=== PATIENT | male | born 1970 | race Caucasian/White ===

== ENCOUNTER 2021-10-31 06:00 | Outpatient (RCR) | payer MEDICARE, MEDICAID, SELFPAY | END 2021-11-06 23:59 | disposition home or self-care (01) | LOC: SPT 06:00 | PROVIDERS: Family Provider Family Medicine; PCP Family Medicine; Visit Provider Neurological Surgery | DX: M54.16 Radiculopathy, lumbar region (principal) | CPT/HCPCS: 97162 ==

== ENCOUNTER → 2022-03-11 11:28 | Outpatient (BNVA) | payer MEDICARE, MEDICAID, SELFPAY | PROVIDERS: Family Provider Family Medicine; PCP Family Medicine; Visit Provider Family Medicine | DX: R30.0 Dysuria (principal) | CPT/HCPCS: 81000 ==

== ENCOUNTER 2023-07-14 14:35 | Emergency (ER) | payer MEDICARE, MEDICAID, SELFPAY ==
[2023-07-14 14:47] VITALS: BP 117/77; PULSE 73; RESP 18; TEMP 36.4; O2SAT 96; BMI 27.3
--- NOTE | 2023-07-14 15:00 | XR_ITS ---
WS: [id number] Portable AP upright chest, 07/14/2023 Clinical Data: cp Comparison: Portable chest, 01/17/2015 Findings: No nodules, masses or effusions are seen. The heart is normal. The pulmonary vascularity is not increased. No pneumonia or pneumothorax is seen. The diaphragms are flattened. The patient is hdz d an anterior and posterior cervical fusion. Impression: Hyperinflation.
--- NOTE | 2023-07-14 15:00 | CT_ITS ---
WS: [id number] CT HEAD NONCONTRAST HISTORY: right side weakness TECHNIQUE: Contiguous axial imaging performed through the brain in 3.0 mm imaging. Bone and soft tiss ue windows. Sagittal and coronal reformats reviewed. All CT scans at [facility] use at least one of these dose optimization techniques: automated exposure control; mA and/or kV adjustment per pa tient size (includes targeted exams where dose is matched to clinical indication); or iterative recon struction. DLP: 1141.38 mGy.cm COMPARISON: 05/15/2015 No acute intracranial hemorrhage, midline shift or mass effect. Very mild atrophy and small vessel ischemic disease. Ventricles: Normal size with no hydrocephalus. Moderate bilateral cerebellar atrophy has been previously described. Mild progression since 2015. Paranasal sinuses: As visualized are clear. Mastoid air cells: Well pneumatized. Calvarium and scalp: Skull is intact with no soft tissue edema or swelling. IMPRESSION: 1. No acute intracranial hemorrhage or edema. 2. Very mild cerebral atrophy and small vessel ischemic disease. No infarct. 3. Chronic moderate bilateral cerebellar atrophy.
--- NOTE | 2023-07-14 15:00 | ECG_ITS ---
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 Measurements Intervals [place] Rate: 65 P: 57 [place]: 176 QRS: 30 QRSD: 97 T: 37 QT: 376 QTc: 391 Interpretive Statements SINUS RHYTHM Compared to ECG 01/17/2015 01:30:45 No significant changes Electronically Signed On 07-14-2023 15:28:40 PRINTING ROLLER POLISHER by Samir Bailey M.D. [id number]
--- NOTE | 2023-07-14 15:10 | ED_ITS ---
HPI - Weakness 2 General: Chief complaint: Weakness Stated complaint: Low bp, Body aches Time Seen by Provider: 07/14/23 14:55 Source: patient Mode of arrival: ambulatory Limitations: no limitations History of Present Illness: 53-year-old male has a history of chroni c pain states he is seen at the pain clinic takes oxycodone chronically for his pain. He states that his pain is worsened when asked where it is he states all over he states his whole body hurts not really able to tell me specifics. He states that he has had some right-sided weakness but he states its been going on for 6 to 7 months. He denies any fevers she denies any vomiting. Associated symptoms: Denies chest pain, chills, fever(s), headache(s), nausea or vomiting Review of Systems 2 Const: Reports: body aches; Denies: fever(s), chills or change in appetite Eyes: Denies: blurry vision or eye discomfort ENMT: Denies: throat pain or dental pain Card: Denies: chest pain Resp: Denies: dyspnea GI: Denies: abdominal pain, nausea, vomiting or diarrhea Musc: Reports: neck pain, back pain and extremity pain Skin/Breast: Denies: rash Neuro: Reports: weakness in extremities; Denies: headache(s) PFSH ED 2 PFSH: Medical History Chronic constipation Strain of other muscles, fascia and tendons at shoulder and upper arm level, right arm, initial encounter Acute strain of neck muscle Neuropathy Seizure disorder Intervertebral disc disorder with radiculopathy of lumbar region Surgical History H/O hemorrhoidectomy Hx of fusion of cervical spine (~02/28/09) Hx of fusion of cervical spine (~03/30/09) Family History Mother CAD (coronary artery disease) Father CAD (coronary artery disease) Social History Smoking and tobacco/nicotine status: former use of tobacco/nicotine Alcohol intake: former Substance/Drug Use: never Lives independently: Yes Marital status: Single Current occupational status: disabled Physical Exam 2 Const: COMMON NORMALS: no acute distress, patient oriented x3 and healthy appearing HENMT: COMMON NORMALS: normocephalic and atraumatic HEAD & SCALP: n ormocephalic and atraumatic Eye: COMMON NORMALS: Equal, round and reactive pupils present and EOMs intact bilaterally PUPIL: Yes Equal, round and reactive pupils present Neck/C-Spine: COMMON NORMALS: full ROM and supple Chest: COMMONS NORMALS: normal inspection of the chest and normal palpation of entire chest wall Resp: COMMON NORMALS: normal respiratory effort, No retractions, No use of accessory muscles and clear to auscultation bilaterally AUSCULTATION: clear to auscultation bilaterally Cardio: COMMON NORMALS: regular rate, regular rhythm and No murmurs present (Cardio) RATE: regular rate RHYTHM: regular rhythm GI: COMMON NORMALS: Normal to inspection, nondistended, normoactive bowel sounds present, Soft to palpation, non-tender and no masses PALPATION: Yes Soft to palpation Extremity: COMMON NORMALS: normal to inspection and full ROM Neuro: COMMON NORMALS: patient oriented x3 and moves all extremities OTHER: Right arm and leg weakness has been ongoing for months per patient he is able to lift arm and leg but is weaker than the right side he is able to ambulate. Psych: COMMON NORMALS: mental status grossly normal, Normal thought process present and cooperative THOUGHT PROCESS: Normal thought process present Skin: COMMON NORMALS: no rashes or lesions noted and no wounds GENERAL SKIN EXAM: no rashes or lesions noted Course 2 Vital Signs: Vital signs: Vital Signs Temperature 97.6 F 07/14/23 14:47 Pulse Rate 68 07/14/23 16:15 Respiratory Rate 10 L 07/14/23 16:15 Blood Pressure 131/81 07/14/23 16:15 Pulse Oximetry 93 07/14/23 16:15 Oxygen Delivery Me thod Room Air 07/14/23 14:47 MDM - Weakness Medical Decision Making Patient presents here with pain all over mainly his neck he does have chronic neck pain his lab work here is normal EKG is normal no signs of acute coronary syndrome chest x-ray here is normal he has had some right-sided weakness that is also been going on for months CT head shows no signs of stroke he is able to ambulate he just does have some weakness on that side it is not acute. 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 Medical Records I reviewed the patient's medical records. Lab Data I reviewed the patient's lab results. 07/14/23 15:26 07/14/23 15:26 Laboratory Results WBC 6.21 10^3/uL (3.29-11.43) 07/14/23 15:26 RBC 5.46 10^6/uL (3.85-5.65) 07/14/23 15:26 Hgb 16.80 g/dL (11.27-16.99) 07/14/23 15:26 Hct 50.8 % (37-53) 07/14/23 15: MCV 93.0 fl (82-101) 07/14/23 15:26 MCH 30.8 pg (27-33) 07/14/23 15: MCHC 33.1 g/dL (30-55) 07/14/23 15:26 RDW 12.7 % (12.1-15.1) 07/14/23 15: Plt Count 200 10^3/cmm (157-399) 07/14/23 15: MPV 9.2 fL (7.4-10.4) 07/14/23 15:26 Neut % (Auto) 46.8 % 07/14/23 15:26 Lymph % (Auto) 39.6 % 07/14/23 15:26 [place] % (Auto) 9.3 % 07/14/23 15:26 Eos % (Auto) 3.1 % 07/14/23 15:26 Baso % (Auto) 1.0 % 07/14/23 15:26 Neut # (Auto) 2.91 10^3/uL (1.8-7.7) 07/14/23 15:26 Lymph # (Auto) 2.5 10^3/uL (0.8-4.8) 07/14/23 15:26 [place] # (Auto) 0.6 10^3/uL (0.2-0.9) 07/14/23 15:26 Eos # (Auto) 0.2 10^3/uL (0.0-0.8) 07/14/23 15:26 Baso # (Auto) 0.1 10^3/uL (0.0-0.1) 07/14/23 15:26 Nucleated RBC % (auto) 0 % 07/14/23 15:26 Nucleated RBCs # 0.0 /100WBC 07/14/23 15:26 Sodium 138 mmol/L (136-145) 07/14/23 15:26 Potassium 4.6 mmol/L (3.5-5.1) 07/14/23 15:26 Chloride 104 mmol/L (98-107) 07/14/23 15:26 Carbon Dioxide 22 mmol/L (22-29) 07/14/23 15:26 Anion Gap 16.6 (5-19) 07/14/23 15:26 BUN 17 mg/dL (6-20) 07/14/23 15:26 Creatinine 0.9 mg/dL (0.7-1.2) 07/14/23 15:26 GFR Calculation 88.6 mL/min (90-130) L 07/14/23 15:26 Glucose 75 mg/dL (65-115) 07/14/23 15:26 Calculated Osmolality 286 mOsm/kg (285-295) 07/14/23 15:26 Calcium 9.7 mg/dL (8.5-10.5) 07/14/23 15:26 Total Bilirubin 0.2 mg/dL (0.15-1.2) 07/14/23 15:26 AST 26 U/L (0-40) 07/14/23 15:26 ALT 19 U/L (0-41) 07/14/23 15:26 Alkaline Phosphatase 112 U/L (40-130) 07/14/23 15:26 Total Protein 7.8 g/dL (6.6-8.7) 07/14/23 15:26 Albumin 4.2 g/dL (3.5-5.2) 07/14/23 15:26 Globulin 3.6 g/dL (1.3-4.6) 07/14/23 15:26 TSH 1.01 uIU/mL (0.27-4.20) 07/14/23 15:26 All radiology interpretation(s) finalized by discharge EKG Data EKG 1: I personally reviewed and interpreted this EKG as follows: EKG interpretation date: 07/14/23 EKG interpretation time: 15:04 Interpretation: nsr hr [address] or t wave abnormalities qrs 97 qtc 387 Discharge Plan Discharge Patient Disposition: Home Clinical Impression: Chronic pain Qualifiers: Chronic pain type: other chronic pain Qualified Code(s): G89.29 - Other chronic pain Condition: Stable Prescriptions: New ondansetron 4 mg tablet,disintegrating 4 mg PO Q6H PRN (Reason: nausea and vomiting) Qty: 14 0RF Naprosyn 500 mg tablet 500 mg PO BID PRN (Reason: pain) Qty: 20 0RF No Action Vimpat 50 mg tablet 100 mg PO .at HS phenytoin sodium extended [Dilantin Extended] 100 mg capsule 100 mg PO .HS vit c blend PO oxycodone-acetaminophen [Percocet] 5-325 mg tablet 1 tab PO Q8H meloxicam 15 mg tablet 15 mg PO DAILY medical marijuana PO baclofen 20 mg tablet 20 mg PO TID Qty: 30 0RF valacyclovir 1 gram tablet 1,000 mg PO Q8H 7 Days Qty: 21 0RF triamcinolone acetonide 0.1 % ointment 1 applic topical TID 7 Days Qty: 60 0RF pantoprazole 20 mg tablet,delayed release (DR/EC) See Rx Instructions .ROUTE .COMPLEX Qty: 90 3RF Dose Instruction: TAKE 1 TABLET BY MOUTH DAILY Rx Instructions: TAKE 1 TABLET BY MOUTH DAILY Discharge Orders: Discharge ED (Routine); Ordered 07/14/23 Ordered By: Radha Alarcon Referrals: Raul Gill DO [Primary Care Provider] - 1-3 days Discharge Diet: Advance as tolerated Discharge Activity: Resume usual activity Patient Instructions: Chronic Pain (ED) Coding Level of Care Code ED Database Administration Associate for Radha Wright
[2023-07-14 15:36] LABS: Basophils # 0.1 10^3/uL (0.0-0.1); Eosinophils # 0.2 10^3/uL (0.0-0.8); Eosinophils % 3.1 %; Hematocrit 50.8 % (37-53); Lymphocytes # 2.5 10^3/uL (0.8-4.8); Lymphocytes % 39.6 %; Mean Corpuscular HGB Conc 33.1 g/dL (30-55); Mean Corpuscular Hemoglobin 30.8 pg (27-33); Mean Platelet Volume 9.2 fL (7.4-10.4); Monocytes # 0.6 10^3/uL (0.2-0.9); Monocytes % 9.3 %; Neutrophils # 2.91 10^3/uL (1.8-7.7); Neutrophils % 46.8 %; Nucleated Red Blood Cells % 0 %; Platelet Count 200 10^3/cmm (157-399); Red Blood Count 5.46 10^6/uL (3.85-5.65); Red Cell Distribution Width 12.7 % (12.1-15.1); White Blood Count 6.21 10^3/uL (3.29-11.43)
[2023-07-14] MEDS: ondansetron 2 mg/ML SDV 2 mL 4 MG IVP (15:43)
[2023-07-14 15:45] VITALS: RESP 18
[2023-07-14] MEDS: morphine 4 mg/mL SDV 1 mL IVP (15:45)
[2023-07-14 16:15] VITALS: BP 131/81; PULSE 68; RESP 10; O2SAT 93
[2023-07-14 16:15] LABS: Alanine Aminotransferase 19 U/L (0-41); Albumin Level 4.2 g/dL (3.5-5.2); Alkaline Phosphatase 112 U/L (40-130); Blood Urea Nitrogen 17 mg/dL (6-20); Calcium 9.7 mg/dL (8.5-10.5); Carbon Dioxide 22 mmol/L (22-29); Chloride 104 mmol/L (98-107); Globulin 3.6 g/dL (1.3-4.6); Glomerular Filtration Rate 88.6 mL/min (90-130); Glucose 75 mg/dL (65-115); Osmolality Calculated 286 mOsm/kg (285-295); Sodium 138 mmol/L (136-145); Thyroid Stimulating Hormone 1.01 uIU/mL (0.27-4.20); Total Bilirubin 0.2 mg/dL (0.15-1.2); Total Protein 7.8 g/dL (6.6-8.7)
[2023-07-14 16:17] LABS: Anion Gap 16.6 (5-19); Aspartate Amino Transferase 26 U/L (0-40); Potassium 4.6 mmol/L (3.5-5.1)
[2023-07-14 16:51] VITALS: BP 122/83; PULSE 67; O2SAT 94
== END 2023-07-14 16:52 | disposition home or self-care (01) ==
PROVIDERS: Emergency Provider Emergency Medicine; PCP Family Medicine
DX: G89.29 Other chronic pain (principal); M54.2 Cervicalgia; Z87.891 Personal history of nicotine dependence
CPT/HCPCS: 36415; 70450; 71045; 80053; 84443; 85025; 93005; 96374; 96375; 99285; J2270; J2405

== ENCOUNTER 2023-08-28 20:48 | Emergency (ER) | payer MEDICARE, MEDICAID, SELFPAY ==
--- NOTE | 2023-08-28 20:49 | ECG_ITS ---
[facility] Test Date: 2023-08-28 Pat Name: Dylan Clark Department: Room: Gender: Male Transplanter Orchid: : 1970 Requested By: Radha Alarcon Order Number: [id number] Michela MD: Dereck Mujica M.D. Measurements Intervals [place] Rate: 95 P: 66 [place]: 212 QRS: 79 QRSD: 92 T: 33 QT: 365 QTc: 460 Interpretive Statements SINUS RHYTHM WITH FIRST DEGREE AV BLOCK MODERATE T-WAVE ABNORMALITY, CONSIDER ANTERIOR ISCHEMIA [-0.1+ mV T-WAVE IN V3/V4] Compared to ECG 07/14/2023 15:04:57 First degree AV block now present T-wave abnormality now present Possible ischemia now present Electronically Signed On 08-29-2023 8:32:08 BARRELHEAD INSPECTOR by Dereck Mujica M.D. [id number]
--- NOTE | 2023-08-28 20:49 | XRR_ITS ---
PROCEDURE INFORMATION: Exam: XR Chest Exam date and time: 08/28/2023 9:10 PM Age: 53 years old Clinical indication: Chest pressure; Prior surgery; Surgery date: 6+ months; Surgery type: Cervical fusion; Patient HX: C/O chest pain; Additional info: Cp TECHNIQUE: Imaging protocol: Radiologic exam of the chest. Views: 1 view. COMPARISON: CR XR chest 1V portable [id number] 07/14/2023 4:06 PM FINDINGS: Lungs: No consolidation. Pleural spaces: No large pleural effusion. No pneumothorax. Heart/Mediastinum: Unremarkable. No cardiomegaly. Bones/joints: Partially imaged cervical spine hardware. No acute osseous abnormality. XR/XR chest 1V portable [id number] IMPRESSION: No acute findings.
[2023-08-28 20:50] VITALS: BP 164/96; PULSE 104; RESP 19; TEMP 36.7; O2SAT 94; BMI 27.3
--- NOTE | 2023-08-28 20:59 | W.ED.CHESTPA ---
HPI - Chest Pain General: Chief Complaint: Chest Pain Stated Complaint: CP Time Seen by Provider: 08/28/23 20:48 Source: patient Mode of arrival: ambulatory Limitations: no limitations History of Present Illness: 53-year-old male states that he is having chest pain tonight's been intermittent and sharp in nature and center of his chest he is also had some shortness of breath. He denies any fever patient denies any cough he had no vomiting or diarrhea. Denies any worsening improving factors. Associated symptoms: Deny abdominal pain, dyspnea, fever(s), nausea or vomiting Review of Systems Const: Denies: fever(s), chills, body aches or change in appetite ENMT: Denies: throat pain or dental pain Card: Reports: chest pain Resp: Denies: dyspnea GI: Denies: abdominal pain, nausea, vomiting or diarrhea : Denies: dysuria Musc: Denies: neck pain or back pain Skin/Breast: Denies: rash Neuro: Denies: headache(s) PFSH ED PFSH: Medical History Chronic constipation Strain of other muscles, fascia and tendons at shoulder and upper arm level, right arm, initial encounter Acute strain of neck muscle Neuropathy Seizure disorder Intervertebral disc disorder with radiculopathy of lumbar region Surgical History H/O hemorrhoidectomy Hx of fusion of cervical spine (~02/28/09) Hx of fusion of cervical spine (~03/30/09) Family History Mother CAD (coronary artery disease) Father CAD (coronary artery disease) Social History Smoking and tobacco/nicotine status: former use of tobacco/nicotine Alcohol intake: former Substance/Drug Use: never Lives independently: Yes Marital status: Single Current occupational status: disabled Physical Exam Const: COMMON NORMALS: no acute distress, patient oriented x3 and healthy appearing HENMT: COMMON NORMALS: normocephalic and atraumatic HEAD & SCALP: normocephalic and atraumatic Eye: COMMON NORMALS: Equal, round and reactive pupils present and EOMs intact bilaterally PUPIL: Yes Equal, round and reactive pupils present Neck/C-Spine: COMMON NORMALS: full ROM and supple Chest: COMMONS NORMALS: normal inspection of the chest and normal palpation of entire chest wall Resp: COMMON NORMALS: normal respiratory effort, No retractions, No use of accessory muscles and clear to auscultation bilaterally AUSCULTATION: clear to auscultation bilaterally Cardio: COMMON NORMALS: regular rate, regular rhythm and No murmurs present (Cardio) RATE: regular rate RHYTHM: regular rhythm GI: COMMON NORMALS: Normal to inspection, nondistended, normoactive bowel sounds present, Soft to palpation, non-tender and no masses PALPATION: Yes Soft to palpation Extremity: COMMON NORMALS: normal to inspection and full ROM Neuro: COMMON NORMALS: patient oriented x3, moves all extremities and no focal motor deficits Psych: COMMON NORMALS: mental status grossly normal, Normal thought process present and cooperative THOUGHT PROCESS: Normal thought process present Skin: COMMON NORMALS: no rashes or lesions noted and no wounds GENERAL SKIN EXAM: no rashes or lesions noted Course Vital Signs: Vital signs: Vital Signs Temperature 98.1 F 08/28/23 20:50 Pulse Rate 71 08/28/23 23:26 Respiratory Rate 16 08/28/23 23:26 Blood Pressure 121/81 08/28/23 23:26 Pulse Oximetry 90 08/28/23 23:26 Oxygen Delivery Me thod Room Air 08/28/23 20:50 MDM - Chest Pain Medical Decision Making Patient presents here with chest pain is atypical in nature he has been well-appearing here both troponins EKG x-ray and D-dimer all negative no signs of dissection or pulmonary embolism or acute coronary syndrome he is stable for discharge he is follow-up with PCP and return if worsening. Medical Records I reviewed the patient's medical records. Lab Data I reviewed the patient's lab results. 08/28/23 22:07 08/28/23 22:07 Radiology Impressions Chest X-Ray 08/28/23 20:49 IMPRESSION: No acute findings. Laboratory Results WBC 7.57 10^3/uL (3.29-11.43) 08/28/23 22:07 RBC 4.71 10^6/uL (3.85-5.65) 08/28/23 22:07 Hgb 14.80 g/dL (11.27-16.99) 08/28/23 22:07 Hct 43.8 % (37-53) 08/28/23 22:07 MCV 93.0 fl (82-101) 08/28/23 22:07 MCH 31.4 pg (27-33) 08/28/23 22:07 MCHC 33.8 g/dL (30-55) 08/28/23 22:07 RDW 13.1 % (12.1-15.1) 08/28/23 22:07 Plt Count 181 10^3/cmm (157-399) 08/28/23 22:07 MPV 9.9 fL (7.4-10.4) 08/28/23 22:07 Neut % (Auto) 67.0 % 08/28/23 22:07 Lymph % (Auto) 23.0 % 08/28/23 22:07 [place] % (Auto) 8.3 % 08/28/23 22:07 Eos % (Auto) 1.2 % 08/28/23 22:07 Baso % (Auto) 0.4 % 08/28/23 22:07 Neut # (Auto) 5.07 10^3/uL (1.8-7.7) 08/28/23 22:07 Lymph # (Auto) 1.7 10^3/uL (0.8-4.8) 08/28/23 22:07 [place] # (Auto) 0.6 10^3/uL (0.2-0.9) 08/28/23 22:07 Eos # (Auto) 0.1 10^3/uL (0.0-0.8) 08/28/23 22:07 Baso # (Auto) 0.0 10^3/uL (0.0-0.1) 08/28/23 22:07 Nucleated RBC % (auto) 0 % 08/28/23 22:07 Nucleated RBCs # 0.0 /100WBC 08/28/23 22:07 D-Dimer 0.33 ug/mLFEU (0-0.59) 08/28/23 22:07 Sodium 140 mmol/L (136-145) 08/28/23 22:07 Potassium 4.8 mmol/L (3.5-5.1) 08/28/23 22:07 Chloride 104 mmol/L (98-107) 08/28/23 22:07 Carbon Dioxide 28 mmol/L (22-29) 08/28/23 22:07 Anion Gap 12.8 (5-19) 08/28/23 22:07 BUN 13 mg/dL (6-20) 08/28/23 22:07 Creatinine 1.0 mg/dL (0.7-1.2) 08/28/23 22:07 GFR Calculation 78.5 mL/min (90-130) L 08/28/23 22:07 Glucose 117 mg/dL (65-115) H 08/28/23 22:07 Calculated Osmolality 291 mOsm/kg (285-295) 08/28/23 22:07 Calcium 9.9 mg/dL (8.5-10.5) 08/28/23 22:07 Total Bilirubin 0.2 mg/dL (0.15-1.2) 08/28/23 22:07 AST 24 U/L (0-40) 08/28/23 22:07 ALT 23 U/L (0-41) 08/28/23 22:07 Alkaline Phosphatase 104 U/L (40-130) 08/28/23 22:07 Troponin T Baseline 11 ng/L (0-15) 08/28/23 22:07 Troponin T 120 Minute 11.38 ng/L (0-15) 08/28/23 23:59 Delta Troponin T 0.38 ABS# (0-10) 08/28/23 23:59 Total Protein 7.1 g/dL (6.6-8.7) 08/28/23 22:07 Albumin 4.3 g/dL (3.5-5.2) 08/28/23 22:07 Globulin 2.8 g/dL (1.3-4.6) 08/28/23 22:07 Lipase 34 U/L (13-60) 08/28/23 22:07 All radiology interpretation(s) finalized by discharge EKG Data EKG 1: I personally reviewed and interpreted this EKG as follows: EKG interpretation date: 08/28/23 EKG interpretation time: 20:55 Interpretation: nsr hr [address] or t wave abnormalities qrs 92 qtc 418 Discharge Plan Discharge Patient Disposition: Home Clinical Impression: Chest pain Prescriptions: No Action Vimpat 50 mg tablet 100 mg PO .at HS phenytoin sodium extended [Dilantin Extended] 100 mg capsule 100 mg PO .HS vit c blend PO oxycodone-acetaminophen [Percocet] 5-325 mg tablet 1 tab PO Q8H meloxicam 15 mg tablet 15 mg PO DAILY medical marijuana PO baclofen 20 mg tablet 20 mg PO TID Qty: 30 0RF valacyclovir 1 gram tablet 1,000 mg PO Q8H 7 Days Qty: 21 0RF triamcinolone acetonide 0.1 % ointment 1 applic topical TID 7 Days Qty: 60 0RF pantoprazole 20 mg tablet,delayed release (DR/EC) See Rx Instructions .ROUTE .COMPLEX Qty: 90 3RF Dose Instruction: TAKE 1 TABLET BY MOUTH DAILY Rx Instructions: TAKE 1 TABLET BY MOUTH DAILY ondansetron 4 mg tablet,disintegrating 4 mg PO Q6H PRN (Reason: nausea and vomiting) Qty: 14 0RF Naprosyn 500 mg tablet 500 mg PO BID PRN (Reason: pain) Qty: 20 0RF Discharge Orders: Discharge ED (Routine); Ordered 08/29/23 Ordered By: Radha Alarcon Referrals: Raul Gill DO [Primary Care Provider] - 1-3 days Discharge Diet: Advance as tolerated Discharge Activity: Resume usual activity Patient Instructions: Chest Pain (ED) Coding Level of Care Code ED Curriculum And Assessment Director for Radha Wright
[2023-08-28 22:29] LABS: Basophils % 0.4 %; Eosinophils # 0.1 10^3/uL (0.0-0.8); Eosinophils % 1.2 %; Hematocrit 43.8 % (37-53); Lymphocytes # 1.7 10^3/uL (0.8-4.8); Mean Corpuscular HGB Conc 33.8 g/dL (30-55); Mean Corpuscular Hemoglobin 31.4 pg (27-33); Mean Platelet Volume 9.9 fL (7.4-10.4); Monocytes # 0.6 10^3/uL (0.2-0.9); Monocytes % 8.3 %; Neutrophils # 5.07 10^3/uL (1.8-7.7); Nucleated Red Blood Cells % 0 %; Platelet Count 181 10^3/cmm (157-399); Red Blood Count 4.71 10^6/uL (3.85-5.65); Red Cell Distribution Width 13.1 % (12.1-15.1); White Blood Count 7.57 10^3/uL (3.29-11.43)
[2023-08-28 22:34] LABS: D Dimer 0.33 ug/mLFEU (0-0.59)
[2023-08-28 22:37] LABS: Troponin(5th) Baseline 11 ng/L (0-15)
[2023-08-28 22:38] LABS: Alanine Aminotransferase 23 U/L (0-41); Albumin Level 4.3 g/dL (3.5-5.2); Alkaline Phosphatase 104 U/L (40-130); Aspartate Amino Transferase 24 U/L (0-40); Blood Urea Nitrogen 13 mg/dL (6-20); Calcium 9.9 mg/dL (8.5-10.5); Carbon Dioxide 28 mmol/L (22-29); Chloride 104 mmol/L (98-107); Globulin 2.8 g/dL (1.3-4.6); Glomerular Filtration Rate 78.5 mL/min (90-130); Glucose 117 mg/dL (65-115); Lipase 34 U/L (13-60); Osmolality Calculated 291 mOsm/kg (285-295); Sodium 140 mmol/L (136-145); Total Bilirubin 0.2 mg/dL (0.15-1.2); Total Protein 7.1 g/dL (6.6-8.7)
[2023-08-28 22:43] LABS: Anion Gap 12.8 (5-19); Potassium 4.8 mmol/L (3.5-5.1)
[2023-08-28] MEDS: ondansetron 2 mg/ML SDV 2 mL 4 MG IVP (22:48)
--- NOTE | 2023-08-28 22:49 | ECG_ITS ---
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 Measurements Intervals [place] Rate: 82 P: 64 [place]: 203 QRS: 80 QRSD: 94 T: 49 QT: 373 QTc: 436 Interpretive Statements SINUS RHYTHM MODERATE T-WAVE ABNORMALITY, CONSIDER ANTERIOR ISCHEMIA [-0.1+ mV T-WAVE IN V3/V4] Compared to ECG 08/28/2023 20:55:18 First degree AV block no longer present T-wave abnormality still present Possible ischemia still present Electronically Signed On 08-29-2023 8:38:14 EVENT DESIGNER by Dereck Mujica M.D. [email or web address] [email or web address] [email or web address]/store/OM/[id number]
[2023-08-28] MEDS: morphine 4 mg/mL SDV 1 mL IVP (22:50)
[2023-08-28 23:26] VITALS: BP 121/81; PULSE 71; RESP 16; O2SAT 90
[2023-08-29 00:23] LABS: Troponin 5 2HR 11.38 ng/L (0-15); Troponin 5 2HR Delta 0.38 ABS# (0-10)
[2023-08-29 00:48] VITALS: BP 119/86; PULSE 62; RESP 16; TEMP 36.7; O2SAT 95
== END 2023-08-29 00:49 | disposition home or self-care (01) ==
PROVIDERS: Emergency Provider Emergency Medicine; PCP Family Medicine
DX: R07.89 Other chest pain (principal)
CPT/HCPCS: 36415; 71045; 80053; 83690; 84484; 85025; 85378; 93005; 96374; 96375; 99285; J2270; J2405

== ENCOUNTER 2024-08-06 15:39 | Emergency (ER) | payer MEDICARE, MEDICAID, SELFPAY ==
[2024-08-06] VITALS (8 sets, daily range): BP systolic 102–112; BP diastolic 76–84; PULSE 61–77; RESP 16–18; TEMP 36.3; O2SAT 93–97; BMI 28.8
--- NOTE | 2024-08-06 16:17 | ECG_ITS ---
[facility] Test Date: 2024-08-06 Pat Name: Dylan Clark Department: Room: Gender: Male Piano Maker: : 1970 Requested By: Radha Alarcon Order Number: [id number] Michela MD: Samir Bailey M.D. Measurements Intervals [place] Rate: 70 P: 69 DE: 206 QRS: 67 QRSD: 98 T: 44 QT: 404 QTc: 436 Interpretive Statements SINUS RHYTHM Compared to ECG 08/28/2023 22:45:26 T-wave abnormality no longer present Possible ischemia no longer present Electronically Signed On 08-06-2024 20:03:23 ARTS ADMINISTRATOR OR MANAGER by Samir Bailey M.D. [id number]
--- NOTE | 2024-08-06 16:18 | ED_ITS ---
HPI - Seizure 2 General: Chief Complaint: Seizure Stated Complaint: seizure @ 2 pm Time Seen by Provider: 08/06/24 15:51 Source: patient Mode of arrival: ambulatory Limitations: no limitations History of Present Illness: HPI Narrative: 54-year-old male has a history of seizur es he is on Vimpat and Dilantin for seizures states that he had a seizure roughly 2 hours ago lasted roughly a minute. He had a seizure 2 days ago as well. He states that he takes his seizure medicine as prescribed denies hitting his head states he feels back to his baseline he has had no recent illness denies any vomiting or diarrhea Associated symptoms: Deny chest pain, chills or fever(s) Related Data Home Medications Medication Instructions Recorded Confirmed lacosamide 50 mg tablet (Vimpat) 100 mg PO .at HS 11/15/19 07/12/24 phenytoin sodium extended 100 mg 100 mg PO .HS 07/21/21 07/12/24 capsule (Dilantin Extended) medical marijuana PO 03/11/22 07/12/24 meloxicam 15 mg tablet 15 mg PO DAILY 03/11/22 07/12/24 oxycodone-acetaminophen 5 mg-325 1 tab PO Q8H 03/11/22 07/12/24 mg tablet (Percocet) vit c blend PO 03/11/22 07/12/24 Previous Rx's Medication Instructions Recorded baclofen 20 mg tablet 20 mg PO TID #30 tabs 03/20/22 triamcinolone acetonide 0.1 % 1 applic topical TID 7 days #60 04/28/22 topical ointment grams valacyclovir 1 gram tablet 1,000 mg PO Q8H 7 days #21 tabs 04/28/22 pantoprazole 20 mg tablet,delayed See Rx Instructions .Route 05/06/22 release .COMPLEX #90 tabs naproxen 500 mg tablet (Naprosyn) 500 mg PO BID PRN pain #20 tabs 07/14/23 ondansetron 4 mg disintegrating 4 mg PO Q6H PRN nausea and 07/14/23 tablet vomiting #14 tabs Allergies Allergy/AdvReac Type Severity Reaction Status Date / Time tramadol Allergy Severe seizures Verified 08/06/24 15:47 Review of Systems 2 Const: Denies: fever(s), chills, body aches or change in appetite ENMT: Denies: throat pain or dental pain Card: Denies: chest pain Resp: Denies: dyspnea GI: Denies: abdominal pain, nausea, vomiting or diarrhea Musc: Denies: neck pain or back pain Skin/Breast: Denies: rash Neuro: Reports: seizure-like activity; Denies: headache(s) PFSH ED 2 PFSH: Medical History Chronic constipation Strain of other muscles, fascia and tendons at shoulder and upper arm level, right arm, initial encounter Acute strain of neck muscle Neuropathy Seizure disorder Intervertebral disc disorder with radiculopathy of lumbar region Surgical History H/O hemorrhoidectomy Hx of fusion of cervical spine (~02/28/09) Hx of fusion of cervical spine (~03/30/09) Family History Mother CAD (coronary artery disease) Father CAD (coronary artery disease) Social History Smoking and tobacco/nicotine status: former use of tobacco/nicotine Alcohol intake: former Substance/Drug Use: never Lives independently: Yes Marital status: Single Current occupational status: disabled Physical Exam 2 Const: COMMON NORMALS: no acute distress, patient oriented x3 and healthy appearing HENMT: COMMON NORMALS: normocephalic and atraumatic HEAD & SCALP: n ormocephalic and atraumatic Eye: COMMON NORMALS: conjunctivae normal CONJUNCTIVA: Yes conjunctivae normal Neck/C-Spine: COMMON NORMALS: full ROM and supple Chest: COMMONS NORMALS: normal inspection of the chest Resp: COMMON NORMALS: normal respiratory effort Cardio: COMMON NORMALS: regular rate, regular rhythm and No murmurs present (Cardio) RATE: regular rate RHYTHM: regular rhythm GI: COMMON NORMALS: Normal to inspection, nondistended, normoactive bowel sounds present, Soft to palpation, non-tender and no masses PALPATION: Yes Soft to palpation Extremity: COMMON NORMALS: normal to inspection and full ROM Neuro: COMMON NORMALS: patient oriented x3, moves all extremities and no focal motor deficits Psych: COMMON NORMALS: mental status grossly normal, Normal thought process present and cooperative THOUGHT PROCESS: Normal thought process present Skin: COMMON NORMALS: no rashes or lesions noted and no wounds GENERAL SKIN EXAM: no rashes or lesions noted Course 2 Vital Signs: Vital signs: Vital Signs Temperature 97.4 F L 08/06/24 15:43 Pulse Rate 70 08/06/24 18:38 Respiratory Rate 16 08/06/24 18:38 Blood Pressure 111/81 08/06/24 18:38 Pulse Oximetry 95 08/06/24 18:38 Oxygen Delivery Me thod Room Air 08/06/24 17:00 MDM - Seizure MDM Narrative Medical decision making narrative: Patient presents here after seizure he has been well-appearing here at his baseline has a history of seizures his Dilantin level was low did give him a dose here he is to follow-up with his neurologist return if worsening he understands agrees plan Lab Data 08/06/24 17:25 Labs: Laboratory Results Sodium 137 mmol/L (136-145) 08/06/24 17:25 Potassium 4.6 mmol/L (3.5-5.1) 08/06/24 17:25 Chloride 102 mmol/L (98-107) 08/06/24 17:25 Carbon Dioxide 26 mmol/L (22-29) 08/06/24 17:25 Anion Gap 13.6 (5-19) 08/06/24 17:25 BUN 13 mg/dL (6-20) 08/06/24 17:25 Creatinine 0.9 mg/dL (0.7-1.2) 08/06/24 17:25 GFR Calculation 88.3 mL/min (90-130) L 08/06/24 17:25 Glucose 163 mg/dL (65-115) H 08/06/24 17:25 Calculated Osmolality 288 mOsm/kg (285-295) 08/06/24 17:25 Calcium 9.7 mg/dL (8.5-10.5) 08/06/24 17:25 Phenytoin 0.9 ug/mL (10-20) L 08/06/24 17:25 No radiology studies performed this visit EKG Data EKG 1: Attestation: I personally reviewed and interpreted this EKG as follows: EKG interpretation date: 08/06/24 EKG interpretation time: 16:39 Interpretation: nsr hr [address] elevation qrs 98 [id number] Discharge Plan Discharge Patient Disposition: Home Clinical Impression: Generalized seizure Condition: Stable Prescriptions: No Action Vimpat 50 mg tablet 100 mg PO .at HS phenytoin sodium extended [Dilantin Extended] 100 mg capsule 100 mg PO .HS vit c blend PO oxycodone-acetaminophen [Percocet] 5-325 mg tablet 1 tab PO Q8H meloxicam 15 mg tablet 15 mg PO DAILY medical marijuana PO baclofen 20 mg tablet 20 mg PO TID Qty: 30 0RF valacyclovir 1 gram tablet 1,000 mg PO Q8H 7 Days Qty: 21 0RF triamcinolone acetonide 0.1 % ointment 1 applic topical TID 7 Days Qty: 60 0RF pantoprazole 20 mg tablet,delayed release (DR/EC) See Rx Instructions .ROUTE .COMPLEX Qty: 90 3RF Dose Instruction: TAKE 1 TABLET BY MOUTH DAILY Rx Instructions: TAKE 1 TABLET BY MOUTH DAILY ondansetron 4 mg tablet,disintegrating 4 mg PO Q6H PRN (Reason: nausea and vomiting) Qty: 14 0RF Naprosyn 500 mg tablet 500 mg PO BID PRN (Reason: pain) Qty: 20 0RF Discharge Orders: Discharge ED (Routine); Ordered 08/06/24 Ordered By: Radha Alarcon Referrals: Raul Gill DO [Primary Care Provider] - 4-7 days Discharge Diet: Advance as tolerated Discharge Activity: Resume usual activity Patient Instructions: Seizures Coding Level of Care Code ED Commercial Carpenter for Radha Wright
[2024-08-06 17:52] LABS: Blood Urea Nitrogen 13 mg/dL (6-20); Calcium 9.7 mg/dL (8.5-10.5); Carbon Dioxide 26 mmol/L (22-29); Chloride 102 mmol/L (98-107); Creatinine Clr Calc Pharmacy 101.3835; Glomerular Filtration Rate 88.3 mL/min (90-130); Glucose 163 mg/dL (65-115); Osmolality Calculated 288 mOsm/kg (285-295); Sodium 137 mmol/L (136-145)
[2024-08-06 17:53] LABS: Anion Gap 13.6 (5-19); Potassium 4.6 mmol/L (3.5-5.1)
[2024-08-06 18:43] LABS: Phenytoin Dilantin 0.9 ug/mL (10-20)
--- NOTE | 2024-08-06 19:11 | PC.NURSE ---
pt had dilantin ordered, pharmacy wait to verify, no dilantin in Pyxis, pt requesting to go home, states he has his meds at home he will take. dr. varela notified and aware and okayed for pt to discharge home, without taking er ordered dilantin.
== END 2024-08-06 19:13 | disposition home or self-care (01) ==
PROVIDERS: Emergency Provider Emergency Medicine; PCP Family Medicine
DX: G40.89 Other seizures (principal); Z87.891 Personal history of nicotine dependence
CPT/HCPCS: 36415; 80048; 80185; 93005; 99284

== ENCOUNTER 2024-10-20 09:20 | Emergency (ER) | payer MEDICARE, MEDICAID, SELFPAY ==
[2024-10-20 09:31] VITALS: BP 160/138; PULSE 57; O2SAT 95; BMI 28.1
[2024-10-20 09:40] VITALS: TEMP 36.4
--- NOTE | 2024-10-20 09:47 | ED_ITS ---
HPI - Abdominal Pain 2 General: Chief Complaint: Abdominal Pain Stated Complaint: abd pain Time Seen by Provider: 10/20/24 09:25 History of Present Illness: 54-year-old man presents emergency room with left lower quadrant pain that started overnight. Fairly severe. He has had some nausea. No vomiting or diarrhea. He has noticed his urine is dark. No dysuria. No fever. No previous abdominal surgeries. Related Data Home Medications ?Medication ?Instructions ?Recorded ?Confirmed lacosamide 100 mg tablet 100 mg PO QPM 10/20/2410/20 phenytoin sodium extended 100 mg 100 mg PO DAILY 10/2010/20/24 capsule (Dilantin Extended) Previous Rx's ?Medication ?Instructions ?Recorded cephalexin 500 mg capsule 500 mg PO BID 7 days #14 cap s 10/20/24 hydrocodone 5 mg-acetaminophen 325 1 tab PO Q8H PRN pa in #14 tabs 10/20/24 mg tablet ondansetron 8 mg disintegrating 8 mg PO Q6H #14 tabs 0 10/20/24 tablet tamsulosin 0.4 mg capsule (Flomax) 0.4 mg PO DAILY #30 caps 10/20/24 Allergies Allergy/AdvReac Type Severity Reaction Status Date / Time tramadol Allergy Severe seizures Verified 08/06/24 15:47 Review of Systems 2 Narrative: Constitutional symptoms: Negative except as documented in HPI. Skin symptoms: Negative except as documented in HPI. Eye symptoms: Negative except as documented in HPI. ENMT symptoms: Negative except as documented in HPI. Respiratory symptoms: Negative except as documented in HPI. Cardiovascular symptoms: Negative except as documented in HPI. Gastrointestinal symptoms: Negative except as documented in HPI. Genitourinary symptoms: Negative except as documented in HPI. Musculoskeletal symptoms: Negative except as documented in HPI. Neurologic symptoms: Negative except as documented in HPI. Psychiatric symptoms: Negative except as documented in HPI. Endocrine symptoms: Negative except as documented in HPI. PFSH ED 2 PFSH: Medical History Chronic constipation Strain of other muscles, fascia and tendons at shoulder and upper arm level, right arm, initial encounter Acute strain of neck muscle Neuropathy Seizure disorder Intervertebral disc disorder with radiculopathy of lumbar region Surgical History H/O hemorrhoidectomy Hx of fusion of cervical spine (~02/28/09) Hx of fusion of cervical spine (~03/30/09) Family History Mother CAD (coronary artery disease) Father CAD (coronary artery disease) Social History Smoking and tobacco/nicotine status: former use of tobacco/nicotine Alcohol intake: former Substance/Drug Use: never Lives independently: Yes Marital status: Single Current occupational status: disabled Physical Exam 2 Narrative: EXAM NARRATIVE: General: Alert, no acute distress. Skin: Warm, dry. Head: Normocephalic, atraumatic. Neck: Supple, trachea midline. Eye: Extraocular movements are intact. Ears, nose, mouth and throat: mucosa moist. Cardiovascular: Regular, Normal peripheral perfusion. Respiratory: Lungs are clear to auscultation, respirations are non-labored, breath sounds are equal, Symmetrical chest wall expansion. Gastrointestinal: Soft, left lower abdominal tenderness, Non distended Musculoskeletal: Normal ROM, no deformity. Neurological: Alert and oriented, No focal neurological deficit observed. Psychiatric: Cooperative, appropriate mood & affect. Course 2 Vital Signs: Vital signs: Vital Signs Temperature 97.6 F 10/20/24 09:40 Pulse Rate 70 10/20/24 12:40 Blood Pressure 152/105 10/20/24 12:40 Pulse Oximetry 93 10/20/24 12:40 Oxygen Delivery Me thod Room Air 10/20/24 09:31 MDM - Abdominal Pain Medical Decision Making Medical decision making: Differential diagnosis for a patient who presents with left lower quadrant abdominal pain including but not limited to and based on the above HPI, review of systems and physical exam: Diverticulitis. Constipation Ureterolithiasis. Urinary tract infection. colitis. small bowel obstruction. Crohn's flare. Orders placed to evaluate differential diagnosis based on the above differential, HPI and physical exam Lab Review: Laboratory results were reviewed and interpreted by myself the emergency room physician. Mild leukocytosis. No anemia. Very slight elevation in creatinine at 1.2. Urinalysis is positive for hematuria. Flu COVID and RSV are negative CT of the abdomen pelvis with contrast: Mildly obstructing distal left ureteral calculus. This was reviewed and interpreted by myself the emergency room physician. I also reviewed the radiology report. I reviewed the patient's medical record. Reexamination: Patient remained stable. No increased work of breathing. No altered mental status. No focal motor deficits. Pain improved with Dilaudid. Toradol did not help much. Assessment and plan: Ureterolithiasis ?IV Toradol. IV Zofran. IV Dilaudid. - Discharged home - Discussed plan with patient. Answered any questions. - Evaluation and treatment of this problem were appropriate in the emergency setting. Lab Data 10/20/24 09:38 10/20/24 09:38 Labs/Radiology: Radiology Impressions Abdomen/Pelvis CT 10/20/24 10:32 IMPRESSION: Mildly obstructing distal left ureteral calculus. COMMENTS: Consistent with the [place] [employer]'s Incidental Findings Committee white paper (J Am Viry Radiol 2018): Any incidental renal lesion less than 1 cm or classified as too small to characterize, or any incidental cystic renal lesion characterized as simple-appearing, is likely benign. No follow-up imaging is recommended for these lesions per consensus recommendations based on imaging criteria. Laboratory Results WBC 14.40 10^3/uL (3.29-11.43) H 10/20/24 09:38 RBC 5.38 10^6/uL (3.85-5.65) 10/20/24 09:38 Hgb 16.30 g/dL (11.27-16.99) 10/20/24 09:38 Hct 48.8 % (37-53) 10/20/24 09:38 MCV 90.7 fl (82-101) 10/20/24 09:38 MCH 30.3 pg (27-33) 10/20/24 09:38 MCHC 33.4 g/dL (30-55) 10/20/24 09:38 RDW 13.2 % (12.1-15.1) 10/20/24 09:38 Plt Count 220 10^3/cmm (157-399) 10/20/24 09:38 MPV 10.3 fL (7.4-10.4) 10/20/24 09:38 Neut % (Auto) 86.5 % 10/20/24 09:38 Lymph % (Auto) 8.5 % 10/20/24 09:38 Haakon % (Auto) 4.4 % 10/20/24 09:38 Eos % (Auto) 0.1 % 10/20/24 09:38 Baso % (Auto) 0.2 % 10/20/24 09:38 Neut # (Auto) 12.46 10^3/uL (1.8-7.7) H 10/20/24 09:38 Lymph # (Auto) 1.2 10^3/uL (0.8-4.8) 10/20/24 09:38 Haakon # (Auto) 0.6 10^3/uL (0.2-0.9) 10/20/24 09:38 Eos # (Auto) 0.0 10^3/uL (0.0-0.8) 10/20/24 09:38 Baso # (Auto) 0.0 10^3/uL (0.0-0.1) 10/20/24 09:38 Nucleated RBC % (auto) 0 % 10/20/24 09:38 Nucleated RBCs # 0.0 /100WBC 10/20/24 09:38 Sodium 138 mmol/L (136-145) 10/20/24 09:38 Potassium 4.3 mmol/L (3.5-5.1) 10/20/24 09:38 Chloride 102 mmol/L (98-107) 10/20/24 09:38 Carbon Dioxide 24 mmol/L (22-29) 10/20/24 09:38 Anion Gap 16.3 (5-19) 10/20/24 09:38 BUN 15 mg/dL (6-20) 10/20/24 09:38 Creatinine 1.2 mg/dL (0.7-1.2) 10/20/24 09:38 GFR Calculation 63.3 mL/min (90-130) L 10/20/24 09:38 Glucose 142 mg/dL (65-115) H 10/20/24 09:38 Calculated Osmolality 289 mOsm/kg (285-295) 10/20/24 09:38 Lactic Acid 2.0 mmol/L (0.5-2.2) 10/20/24 09:38 Calcium 9.7 mg/dL (8.5-10.5) 10/20/24 09:38 Total Bilirubin 0.5 mg/dL (0.15-1.2) 10/20/24 09:38 AST 27 U/L (0-40) 10/20/24 09:38 ALT 25 U/L (0-41) 10/20/24 09:38 Alkaline Phosphatase 115 U/L (40-130) 10/20/24 09:38 Total Protein 8.0 g/dL (6.6-8.7) 10/20/24 09:38 Albumin 4.4 g/dL (3.5-5.2) 10/20/24 09:38 Globulin 3.6 g/dL (1.3-4.6) 10/20/24 09:38 Lipase 27 U/L (13-60) 10/20/24 09:38 Urine Color Yellow (Yellow) 10/20/24 10:10 Urine Appearance Turbid (CLEAR) A 10/20/24 10:10 Urine pH 6.0 (5-7) 10/20/24 10:10 Ur Specific [place] 1.033 (1.005-1.030) H 10/20/24 10:10 Urine Protein 1+ (Negative) A 10/20/24 10:10 Urine Glucose (UA) Negative (Normal) 10/20/24 10:10 Urine Ketones Trace (Negative) 10/20/24 10:10 Urine Blood 3+ (Negative) A 10/20/24 10:10 Urine Nitrate Negative (Negative) 10/20/24 10:10 Urine Bilirubin Negative (Negative) 10/20/24 10:10 Urine Urobilinogen 1.0 mg/dL (Negative) 10/20/24 10:10 Ur Leukocyte Esterase Negative (Negative) 10/20/24 10:10 Urine RBC 51-100 /hpf (0-2) H 10/20/24 10:10 Urine WBC 0-5 /hpf (0-5) 10/20/24 10:10 Ur Squamous Epith Cells 0-5 /hpf (0-5) 10/20/24 10:10 Amorphous Sediment Not Reportable 10/20/24 10:10 Urine Bacteria None seen /hpf (NONE) 10/20/24 10:10 Hyaline Casts 3.30 /lpf 10/20/24 10:10 Influenza A (PCR) Negative (Negative) 10/20/24 10:38 Influenza Type B (PCR) Negative (Negative) 10/20/24 10:38 RSV (PCR) Negative (Negative) 10/20/24 10:38 SARS-CoV-2 (PCR) Negative (Negative) 10/20/24 10:38 All radiology interpretation(s) finalized by discharge Discharge Plan Discharge Patient Disposition: Home Clinical Impression: Ureterolithiasis Condition: Stable Prescriptions: New hydrocodone-acetaminophen 5-325 mg tablet 1 tab PO Q8H PRN (Reason: pain) Qty: 14 0RF Rx Instructions: Take 1/2 to 1 tab every 8 hours as needed for pain ondansetron 8 mg tablet,disintegrating 8 mg PO Q6H Qty: 14 0RF Rx Instructions: Take 1/2-1 tab every 6 hours as needed for nausea and vomiting tamsulosin [Flomax] 0.4 mg capsule 0.4 mg PO DAILY Qty: 30 0RF cephalexin 500 mg capsule 500 mg PO BID 7 Days Qty: 14 0RF No Action phenytoin sodium extended [Dilantin Extended] 100 mg capsule 100 mg PO DAILY lacosamide 100 mg tablet 100 mg PO QPM Discharge Orders: Discharge ED (Routine); Ordered 10/20/24 Ordered By: Sydney Camarena Referrals: Felix Mack [Referring] - 4-7 days (Please call for follow-up with urology. Either Dr. Mack or urologist of your choosing.) Raul Gill DO [Primary Care Provider] - Discharge Diet: Usual diet Discharge Activity: Increase activity as tolerated Patient Instructions: Kidney Stones (ED), Opioid Safety, Pain Management Activity Restrictions/Additional Instructions: Call for appointment with urology. If fever (temp >100.4) develops return to the emergency room immediately, as this is an emergency. Take nausea medication prior to taking pain medications. Thank you for choosing [facility] for your healthcare needs today. Please realize this is an emergency room and that we are providing you with a medical screening exam and this may not be complete and all inclusive of all the testing and or work up that you may need to determine your ailment or severity of your illness. You have been screened and evaluated and felt safe for discharge. Health conditions do change or evolve sometimes and as such it is important that you follow up with your Primary Doctor to be re checked, 3-5 days is a general good time frame for follow up. You are always welcome to return to the ED for re assessment if your symptoms are worsening or you have new concerns Print Language: Czech Coding Level of Care Code ED Swatch Cutter for Radha Wright
[2024-10-20] MEDS: ketorolac 30 mg/mL INJ IVP (10:07)
[2024-10-20 10:26] LABS: Basophils % 0.2 %; Eosinophils % 0.1 %; Hematocrit 48.8 % (37-53); Lymphocytes # 1.2 10^3/uL (0.8-4.8); Lymphocytes % 8.5 %; Mean Corpuscular HGB Conc 33.4 g/dL (30-55); Mean Corpuscular Hemoglobin 30.3 pg (27-33); Mean Corpuscular Volume 90.7 fl (82-101); Mean Platelet Volume 10.3 fL (7.4-10.4); Monocytes # 0.6 10^3/uL (0.2-0.9); Monocytes % 4.4 %; Neutrophils # 12.46 10^3/uL (1.8-7.7); Neutrophils % 86.5 %; Nucleated Red Blood Cells % 0 %; Platelet Count 220 10^3/cmm (157-399); Red Blood Count 5.38 10^6/uL (3.85-5.65); Red Cell Distribution Width 13.2 % (12.1-15.1)
--- NOTE | 2024-10-20 10:32 | CTR_ITS ---
PROCEDURE INFORMATION: Exam: CT Abdomen And Pelvis With Contrast Exam date and time: 10/20/2024 10:48 AM Age: 54 years old Clinical indication: Abdominal pain; Localized; Pain and burning in left side of abd that started this am TECHNIQUE: Imaging protocol: Computed tomography of the abdomen and pelvis with contrast. Radiation optimization: All CT scans at this facility use at least one of these dose optimization techniques: automated exposure control; mA and/or kV adjustment per patient size (includes targeted exams where dose is matched to clinical indication); or iterative reconstruction. Contrast material: OMNI 350; Contrast volume: 100 ml; Contrast route: INTRAVENOUS (IV); COMPARISON: CT lumbar spine wo con* [id number] 07/10/2019 10:42 AM RADIATION DOSE METRICS: Total DLP (mGy-cm): 675.96 FINDINGS: Liver: Normal. No mass. Gallbladder and biliary ducts: Normal. No calcified stones. No ductal dilation. Pancreas: Normal. No ductal dilation. Spleen: Calcified granuloma within the spleen. Adrenal glands: Normal. No mass. Kidneys and ureters: 2-3 mm mildly obstructing distal left ureteral calculus (4:84). Mild ureteropelvic caliectasis and mild left perinephric stranding. Mildly delayed left nephrogram. Small right renal cyst. Stomach and bowel: Unremarkable. No obstruction. No mucosal thickening. Appendix: No evidence of appendicitis. Intraperitoneal space: Unremarkable. No free air. No significant fluid collection. Vasculature: Unremarkable. No abdominal aortic aneurysm. Lymph nodes: Unremarkable. No enlarged lymph nodes. Urinary bladder: Unremarkable as visualized. Reproductive: Unremarkable as visualized. Bones/joints: Unremarkable. No acute fracture. Soft tissues: Unremarkable. CT/CT abdomen pelvis w con* [id number] IMPRESSION: Mildly obstructing distal left ureteral calculus. COMMENTS: Consistent with the [place] [employer]'s Incidental Findings Committee white paper (J Am Viry Radiol 2018): Any incidental renal lesion less than 1 cm or classified as too small to characterize, or any incidental cystic renal lesion characterized as simple-appearing, is likely benign. No follow-up imaging is recommended for these lesions per consensus recommendations based on imaging criteria.
[2024-10-20 10:38] LABS: Alanine Aminotransferase 25 U/L (0-41); Albumin Level 4.4 g/dL (3.5-5.2); Alkaline Phosphatase 115 U/L (40-130); Anion Gap 16.3 (5-19); Aspartate Amino Transferase 27 U/L (0-40); Blood Urea Nitrogen 15 mg/dL (6-20); Calcium 9.7 mg/dL (8.5-10.5); Carbon Dioxide 24 mmol/L (22-29); Chloride 102 mmol/L (98-107); Creatinine Clr Calc Pharmacy 75.1241; Globulin 3.6 g/dL (1.3-4.6); Glomerular Filtration Rate 63.3 mL/min (90-130); Glucose 142 mg/dL (65-115); Lipase 27 U/L (13-60); Osmolality Calculated 289 mOsm/kg (285-295); Potassium 4.3 mmol/L (3.5-5.1); Sodium 138 mmol/L (136-145); Total Bilirubin 0.5 mg/dL (0.15-1.2)
[2024-10-20 10:41] LABS: Bilirubin Urine Negative (Negative); Blood Urine 3+ (Negative); Glucose Urine UA Negative (Normal); Ketones Urine Trace (Negative); Leukocyte Esterase Urine Negative (Negative); Nitrate Urine Negative (Negative); Protein Urine 1+ (Negative); Urine Appearance Turbid (CLEAR); Urine Color Yellow (Yellow)
[2024-10-20 10:46] LABS: Add Urine Culture? Yes; Bacteria Urine None Seen /hpf; RBC Urine 51-100 /hpf (0-2); Specific Gravity, Urine 1.033 (1.005-1.030); Squamous Epithelial Cell Urine 0-5 /hpf (0-5); WBC Urine 0-5 /hpf (0-5)
[2024-10-20] MEDS: iohexol 350 mg/mL 500 mL Btl (per mL) IV (10:59)
[2024-10-20 11:45] LABS: Influenza A NEGATIVE (Negative); Influenza B NEGATIVE (Negative); Respiratory Syncytial Virus Ce NEGATIVE (Negative); SARS-CoV-2 PCR NEGATIVE (Negative)
[2024-10-20] MEDS: ondansetron 2 mg/ML SDV 2 mL 4 MG IVP (11:49)
[2024-10-20] MEDS: HYDROmorphone 0.5 MG/0.5 ML INJ 1 MG IVP (11:51)
[2024-10-20 12:40] VITALS: BP 152/105; PULSE 70; O2SAT 93
== END 2024-10-20 12:41 | disposition home or self-care (01) ==
PROVIDERS: Emergency Provider Emergency Medicine; PCP Family Medicine
DX: N20.1 Calculus of ureter (principal); Z11.52 Encounter for screening for COVID-19; Z87.891 Personal history of nicotine dependence
CPT/HCPCS: 36415; 74177; 80053; 81001; 83605; 83690; 85025; 87086; 87637; 96374; 96375; 99285; J1171; J1885; J2405

== ENCOUNTER → 2024-10-24 13:48 | Outpatient (BNVA) | payer MEDICARE, MEDICAID, SELFPAY | PROVIDERS: PCP Family Medicine; Visit Provider Nurse Practitioner Family | DX: R30.0 Dysuria (principal); R73.9 Hyperglycemia, unspecified | CPT/HCPCS: 81000; 83036 ==

== ENCOUNTER → 2025-03-19 13:35 | Outpatient (BNVA) | payer MEDICARE, MEDICAID, SELFPAY | PROVIDERS: PCP Nurse Practitioner Family; Visit Provider Nurse Practitioner Family | DX: I10 Essential (primary) hypertension (principal) | CPT/HCPCS: 80053; 80061 ==

== ENCOUNTER → 2025-06-26 09:15 | Outpatient (BNVA) | payer MEDICARE, MEDICAID, SELFPAY | PROVIDERS: PCP Nurse Practitioner Family; Visit Provider Nurse Practitioner Family | DX: G40.909 Epilepsy, unspecified, not intractable, without status epilepticus (principal); Z51.81 Encounter for therapeutic drug level monitoring; Z79.899 Other long term (current) drug therapy | CPT/HCPCS: 80185; 80299 ==